=== PATIENT | male | born 1985 | race Caucasian/White ===

== ENCOUNTER 2021-09-16 17:30 | Outpatient (RCR) | payer SELFPAY, OTHER ==
--- NOTE | 2021-08-12 17:47 | HP.PTEVAL_ITS ---
Patient's Visit Information JAMAL BLANTON is a 35 year old M referred to Physical Therapy by GUERLINE Smyth with a diagnosis of L knee effusion. Date of Evaluation: 08/12/21 Physical Therapist: JEFE Nixon - Visit Plan Frequency: 1-2x /Week Duration: 6 Weeks Plan: 1-2X/ week per pt request with HEP for L hip and knee strength, proprioception and stability with HEP. HEP: heel slides, ride stationary bike for 5 min at night after work, ice, SLR, S/L hip abd, prone hip ext. - Subjective Pt reports that he was at work and stumbled over something in the log yard and heard a pop and the swelling did not go down and got an MRI and it showed partial meniscus tear and a partial ligament tear. Kneeling, stairs, and running are the worst. Walking is better. 2 weeks ago was horrible but now it is about the same. He has to watch walking and turning or twisting. He has a knee brace and he feels that it helps him. He is back to work. It hurts at work depending on what he does. 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 He is sleeping ok through the night. He did ice it pretty heavy first few weeks. - Pain L knee pain Pain Intensity (Out of 10): 4 Pain Intensity Range: 6 Comment: with twisting it - Objective Gait: Walks with slight antalgic gait. 0-120 degrees knee flexion L knee. 0- 137 degrees knee flexion R knee. 38.2, 40.4, 43.8, L knee girth. 37.5, 39.9, 42.3 R knee girth. LE MMT: hip flex 4/5 B, knee ext R 4-/5 and L 4/5, R knee flex 4/5 and L 4/5, R hip abd 4/5 and L 4/5, B hip ext 4-/5. Tender along the medial joint line and medial patella. - Balance/Special Test Scores Lower Extremity Functional Score: 44 - Goals Goal 1:: I HEP Goal Time Frame: 2-4 Weeks Goal 2:: Increase L knee AROM to equal that of the R (R 0-137) Goal 3:: Increase L knee strength by 1/2 muscle grade. (LE MMT: hip flex 4/5 B, knee ext R 4-/5 and L 4/5, R knee flex 4/5 and L 4/5, R hip abd 4/5 and L 4/5, B hip ext 4-/5) Goal Time Frame: 4-6 Weeks Goal 4:: Be able to go up stairs without pain Goal Time Frame: 4-6 Weeks Goal 5:: Be able to turn quickly without having pain Goal Time Frame: 4-6 Weeks - Rehabilitation Potential Rehabilitation Potential: Good - Anticipated Interventions Patient/Client Instruction: Educate patient on: Condition, Plan of Care For the Purpose of:: To decrease pain, To decrease swelling/inflammation, To increase ROM, To improve nutrient delivery to tissue, To improve muscle performance and motor function, To improve ability to perform ADL's, To increase tolerance to activity/condition/position, To improve performance and independence with ADL's, To decrease level of supervision to perform tasks, To improve gait and locomotor functions, To improve health of tissue, To decrease soft tissue restriction, To increase flexibility/ROM Therapeutic Exercise to Include: Strength training, Flexibilty training, Gait and locomotor training, Neuromotor development, Passive ROM, Active ROM For the Purpose of:: To decrease pain, To decrease swelling/inflammation, To increase ROM, To improve nutrient delivery to tissue, To improve muscle performance and motor function, To improve ability to perform ADL's, To increase tolerance to activity/condition/position, To improve performance and independence with ADL's, To decrease level of supervision to perform tasks, To improve ability of physical actions for home/community/work/leisure, To improve gait and locomotor functions, To improve health of tissue, To decrease soft tis radha restriction, To increase flexibility/ROM Functional Training to Include: Gait training For the Purpose of:: To improve gait and locomotor functions Manual Therapy Techniques to Include: Passive ROM, Soft tissue mobilization For the Purpose of:: To decrease pain, To decrease swelling/inflammation, To increase ROM IF ES: Yes Cryotherapy (ice pack, ice massage): Yes For the Purpose of:: To decrease pain, To decrease swelling/inflammation, To increase ROM, To improve nutrient delivery to tissue Thank you for the opportunity to evaluate your patient. For Medicare and Medicare HMO plans, please review the plan of care and approve it. It will need to be FAXED BACK to us at [phone] for Medicare purposes. For Medicare only, by signing this I certify the plan of care. Please let me know if there are questions or concerns regarding this plan of care. Physician Signature: Date:
--- NOTE | 2021-09-16 17:59 | HP.PTDCSUM ---
It has been my pleasure to treat JAMAL BLANTON referred by GUERLINE Smyth, with the diagnosis of L knee effusion for a total of 9 visit(s). Discharge Date: 09/16/21 Please see the following information for a summary of their discharge status. Subjective: No pain today. The hardest thing is squating and kneeling down on it. He does not have another appt with the Dr. L knee pain Pain Intensity (Out of 10): 0 % Improvement: 70 Objective/Function: Gait: walks with normal gait pattern. LE MMT: L hip flex 4/5, L hip abd 4+/5, L hip ext 4/5. Stairs: up and down stairs normally without any signs of weakness. Pt reports that he has no pain with turning quickly in standing. Goal 1:: I HEP Goal Progress: Goal Met Goal 2:: Increase L knee AROM to equal that of the R (R 0-137) Goal Progress: Goal Met Goal 3:: Increase L knee strength by 1/2 muscle grade. (LE MMT: hip flex 4/5 B, knee ext R 4-/5 and L 4/5, R knee flex 4/5 and L 4/5, R hip abd 4/5 and L 4/5, B hip ext 4-/5) Goal Progress: Goal Met Goal 4:: Be able to go up stairs without pain Goal Progress: Goal Met Goal 5:: Be able to turn quickly without having pain Goal Progress: Goal Met Plan: NEXT session add wall slides. 1-2X/ week per pt request with HEP for L hip and knee strength, proprioception and stability with HEP. HEP: heel slides, ride stationary bike for 5 min at night after work, ice, SLR, S/L hip abd, prone hip ext. Discharge Comments: DC PT to HEP If there are questions or concerns regarding this patient's physical therapy, please feel free to call me at [phone]. Thank you for the referral of this patient. Sincerely, Lisa Olson, MPT Balance/Gait/Functional tests - Balance/Special Test Scores Lower Extremity Functional Score: 65
== END 2021-09-16 19:00 | disposition home or self-care (01) ==
LOC: PT 17:30
PROVIDERS: PCP Family Medicine; Referring Provider Physician Assistant Surgical; Visit Provider Physician Assistant Surgical
DX: M25.462 Effusion, left knee (principal)
CPT/HCPCS: 97110; 97161; 97530